=== PATIENT | female | born 1980 | race American Indian/Alaskan Native ===

== ENCOUNTER → 2023-06-22 | Day surgery (SDC) | payer OTHER ==
[~2023-06-22] MED LIST: ACETAMINOPHEN 1000 MG/100 ML IV ONE; BUPIVACAINE HCL 0.5% INJ 30 ML VIAL INJ ONE; CEFAZOLIN SODIUM 2 GM ONE; DEXAMETHASONE SOD PHOS INJ 4 MG/ML SDV ONE; FENTANYL CITRATE/PF 100MCG/2 ML INJ ONE; HYDROCODONE/APAP 7.5MG-325MG 1 EA TAB ONE; KETOROLAC TROMETHAMINE 30 MG/ML VIAL ONE; LACTATED RINGER'S 1,000 ML ONE; LIDOCAINE HCL 2% LOCAL INJ 5 ML SDV VIAL INJ ONE; NEOMYCIN/POLYMYXIN/BACITRACIN 15 GM TUBE ONE; NEOSTIGMINE 1 MG/ML 10ML VIAL ONE; ONDANSETRON HCL INJ 2MG/ML 2ML 2 MG/ML VIAL ONE; PROPOFOL IV EMULSION 10 MG/ML 20 ML VIAL ONE; SEVOFLURANE INHAL SOLN 250 ML PEN BTL ONE
[2023-06-22] MEDS: LACTATED RINGER'S 1,000 ML BAG IV ONE (08:29)
[2023-06-22 11:10] VITALS: TEMP 97.5
[2023-06-22] MEDS: HYDROCODONE/APAP 7.5MG-325MG 1 EA TAB PO ONE (11:28)
[2023-06-22 11:45] VITALS: BP 105/70; PULSE 57; RESP 16; O2SAT 99
== END | disposition home or self-care (01) ==
LOC: OR 07:41
PROVIDERS: ATTEND Podiatrist Foot Surgery
DX: M20.42 Other hammer toe(s) (acquired), left foot (principal); M77.8 Other enthesopathies, not elsewhere classified
CPT/HCPCS: 28124; 28285; 81025; J0131; J1100; J1885; J2001; J2405; J2704; J3010; J7121; 76000; J2710